=== PATIENT | female | born 2000 | race Caucasian/White ===

== ENCOUNTER 2019-12-29 22:33 | Emergency (ER) | payer OTHER ==
--- NOTE | 2019-12-29 23:02 | NUR ---
CALLED PT FOR TRIAGE. PT STATED " YOU GUYS ARE VERY UNPROFESSIONAL AND I'VE BEEN HERE FOR AN HOUR" EXPLAINED TO THE PT THAT PTs ARE CALLED IN AND GET TRRIAGED BASED ON THEIR ACUITY AND WE ARE HERE TO HELP. PT WALKED OUT AND LEFT WITHOUT BEING TRIAGED.
== END 2019-12-29 23:13 | disposition left against medical advice (07) ==
LOC: ER 22:33
DX: Z53.21 Procedure and treatment not carried out due to patient leaving prior to being seen by health care provider (principal)